=== PATIENT | female | born 2000 | race Caucasian/White ===

== ENCOUNTER → 2022-01-25 | Outpatient (CLI) | payer BC ==
--- NOTE | 2022-01-25 14:23 | US ---
EXAMINATION TYPE: US transvaginal DATE OF EXAM: 01/25/2022 COMPARISON: NONE CLINICAL HISTORY: N83.299 OTHER OVARIAN CYST. Left pelvic pain TECHNIQUE: Transvaginal (TV). Date of LMP: 1-2 weeks ago EXAM MEASUREMENTS: Uterus: 6.6 x 3.5 x 4.1 cm Endometrial Stripe: 0.5 cm Right Ovary: 1.8 x 1.2 x 1.4 cm Left Ovary: 2.3 x 2.9 x 1.7 cm 1. Uterus: Anteverted slightly heterogeneous 2. Endometrium: trace amount of fluid within 3. Right Ovary: follicles noted 4. Left Ovary: cystic area = 2.1 x 1.3 x 2.2cm 5. Bilateral Adnexa: wnl 6. Posterior cul-de-sac: wnl IMPRESSION: 1. Probable functional ovarian cyst left ovary.
== END | disposition home or self-care (01) ==
LOC: RADUSWWP 13:21
PROVIDERS: ATTEND Family Medicine
DX: N83.299 Other ovarian cyst, unspecified side (principal)
CPT/HCPCS: 76830

== ENCOUNTER → 2024-09-01 | Outpatient (CLI) | payer BC ==
[2024-09-01 22:42] LABS: Alternaria alternata IgE <0.10 kU/L; Aspergillus fumagatus IgE <0.10 kU/L; Birch IgE <0.10 kU/L; Cat Epith & Dander IgE <0.10 kU/L; Cladosporian herbarum IgE <0.10 kU/L; Clam IgE <0.10 kU/L; Cockroach IgE <0.10 kU/L; Codfish IgE <0.10 kU/L; Dermato. farinae IgE 1.79 kU/L; Dog Dander IgE <0.10 kU/L; Egg White IgE <0.10 kU/L; Elm IgE <0.10 kU/L; Maple (Box Elder) IgE <0.10 kU/L; Oak IgE <0.10 kU/L; Peanut IgE <0.10 kU/L; Ragweed,Common IgE <0.10 kU/L; Scallop IgE <0.10 kU/L; Shrimp IgE <0.10 kU/L; Soybean IgE <0.10 kU/L; Walnut IgE (Food) <0.10 kU/L
[2024-09-02 12:33] LABS: Beef IgE <0.10 kU/L (<0.10); Beef IgE Class CLASS 0
== END | disposition home or self-care (01) ==
LOC: LABWHC1 13:53
PROVIDERS: ATTEND Family Medicine
DX: R10.84 Generalized abdominal pain (principal); J30.2 Other seasonal allergic rhinitis
CPT/HCPCS: 36415; 82785; 86003